=== PATIENT | male | born 1985 | race Caucasian/White ===

== ENCOUNTER 2017-04-29 14:15 | Emergency (ER) | payer SELFPAY ==
[2017-04-29] MEDS ORDERED: Clindamycin 150 MG CAP ONE (15:54)
[2017-04-29] MEDS ORDERED: Dexamethasone 4 mg/ml Vial ONE (15:54)
[2017-04-29] MEDS ORDERED: Ketorolac Tromethamine 30 MG/ML VIAL ONE (15:54)
== END 2017-04-29 16:18 | disposition home or self-care (01) ==
LOC: ERS 14:15
DX: K02.9 Dental caries, unspecified (principal); L03.211 Cellulitis of face; F17.210 Nicotine dependence, cigarettes, uncomplicated
CPT/HCPCS: 96372; J1100; J1885

== ENCOUNTER 2018-12-31 12:43 | Emergency (ER) | payer SELFPAY ==
[2018-12-31] MEDS ORDERED: Cyclobenzaprine 10 MG TAB ONE (13:12)
[2018-12-31] MEDS ORDERED: Ketorolac Tromethamine 30 MG/ML VIAL ONE (13:12)
== END 2018-12-31 13:49 | disposition home or self-care (01) ==
LOC: ERS 12:43
DX: S29.012A Strain of muscle and tendon of back wall of thorax, initial encounter (principal); F17.210 Nicotine dependence, cigarettes, uncomplicated; X50.9XXA Other and unspecified overexertion or strenuous movements or postures, initial encounter
CPT/HCPCS: 96372; J1885

== ENCOUNTER 2024-08-07 10:18 | Emergency (ER) | payer SELFPAY ==
[2024-08-07] MEDS ORDERED: Ketorolac Tromethamine 30 MG (1 mL) VIAL ONE (11:01)
[2024-08-07] MEDS ORDERED: Dexamethasone 10 MG/ML VIAL ONE (11:01)
== END 2024-08-07 11:13 | disposition home or self-care (01) ==
LOC: ERS 10:18
DX: J11.1 Influenza due to unidentified influenza virus with other respiratory manifestations (principal); F17.210 Nicotine dependence, cigarettes, uncomplicated
CPT/HCPCS: 87428; 96372; 99283; J1100; J1885